=== PATIENT | female | born 1980 | race Caucasian/White ===

== ENCOUNTER 2017-09-05 07:42 | Inpatient (IN) | payer SELFPAY ==
[2017-09-05] MEDS ORDERED: Morphine 10 MG/ML VIAL ONE (08:20)
--- NOTE | 2017-09-05 09:28 | RAD ---
RIGHT FOREARM 2 VIEWS: Date: 09/05/17 INDICATION: Injury with pain. FINDINGS/IMPRESSION: There is evidence of soft tissue disruption dorsal mid forearm. No acute osseous abnormality identifi ed. No evidence of fracture. POS: [facility]
--- NOTE | 2017-09-05 09:29 | RAD ---
RIGHT HAND 3 VIEWS: Date: 09/05/17 HISTORY: Injury with lacerations and pain. FINDINGS: Carpals, metacarpals, and phalanges appear unremarkable and intact. IMPRESSION: No fracture or acute osseous abnormality identified. POS: [facility]
[2017-09-05] MEDS ORDERED: Lidocaine 1% w/Epinephrine 1:100K 20 ML VIAL ONE (09:43)
[2017-09-05] MEDS ORDERED: Lidocaine 1% PF 5 ML VIAL ONE (10:28)
[2017-09-05] MEDS ORDERED: Ondansetron HCl/PF 4 MG/2 ML Vial ONE (10:28)
[2017-09-05] MEDS ORDERED: Dexamethasone 20 MG/5 ML VIAL ONE (10:28)
[2017-09-05] MEDS ORDERED: Succinylcholine Chloride 20 MG/ML 10 ml SYRINGE FS ONE (10:28)
[2017-09-05] MEDS ORDERED: PROPOFOL 200 MG/20 ML VIAL ONE (10:28)
[2017-09-05] MEDS ORDERED: CEFAZOLIN/Water 2 GM/20 ML SYRINGE SLOW IVP SCH (10:45)
[2017-09-05 12:45] LABS: BHCG - Serum Negative (NEGATIVE); Pregs Control Background? CLEAR/WHITE (CLR/WHITE); Pregs Control Bar Appear? YES (CONTROL BAR)
[2017-09-05] MEDS ORDERED: Sodium Chloride 0.9% 30 ML ONE (13:20)
[2017-09-05] MEDS ORDERED: Bacitracin Zinc Ointment 30 gm TUBE ONE ×2 (13:20→13:21)
[2017-09-05] MEDS ORDERED: Bupivacaine PF 0.5% 30 ML VIAL ONE (13:20)
[2017-09-05] MEDS ORDERED: Midazolam HCl 2 mg/2 ml Vial ONE (13:28)
[2017-09-05] MEDS ORDERED: Fentanyl 100 MCG/2 ML VIAL ONE (13:28)
--- NOTE | 2017-09-05 17:00 | RAD ---
RIGHT LITTLE FINGER INTRAOPERATIVE FLUOROSCOPY TWO VIEWS: 09/05/17 HISTORY: Right finger injury. FINDINGS/IMPRESSION: Intraoperative fluoroscopy is provided for internal fixation as performed by Dr. Kaur. Two spot f luoroscopic images show wire transfixing the distal phalanx and distal interphalangeal joint. POS: [facility]
[2017-09-05] MEDS ORDERED: Acetaminophen 325 MG TAB PO PRN (17:09)
[2017-09-05] MEDS ORDERED: Milk Of Magnesia 30 ML UDCUP PO PRN (17:09)
[2017-09-05] MEDS ORDERED: Bisacodyl 10 MG SUPP PR PRN (17:09)
[2017-09-05] MEDS ORDERED: traMADol HCl 50 MG TAB PO PRN (17:09)
[2017-09-05] MEDS ORDERED: Promethazine HCl 25 MG/ML VIAL IM PRN (17:09)
[2017-09-05] MEDS ORDERED: TETANUS AND DIPHTHERIA TOX/PF 0.5 ML DISP.SYRIN IM SCH (17:15)
[2017-09-05] MEDS ORDERED: Communication Order-Pharmacy FS SCH (17:15)
[2017-09-05] MEDS ORDERED: Ketorolac Tromethamine 30 MG/ML VIAL ONE (17:16)
[2017-09-05] MEDS ORDERED: Ketorolac Tromethamine 30 MG/ML VIAL IVP PRN (17:18)
[2017-09-05] MEDS ORDERED: Vancomycin HCl 1 GM in Premix Bag 1 BAG IVPB SCH (20:00)
[2017-09-05] MEDS: Ketorolac Tromethamine 30 MG/ML VIAL IVP SCH (20:33)
[2017-09-05] MEDS: Aspirin 81 mg Enteric Coated Tablet PO SCH (22:02)
[2017-09-05] MEDS: HYDROcodone/Acetaminophen 5/325 mg Tablet PO PRN (22:02)
[2017-09-05 23:32] VITALS: BMI 27.3
[2017-09-06] MEDS: Ketorolac Tromethamine 30 MG/ML VIAL IVP SCH ×4 (00:23→11:45)
[2017-09-06] MEDS: HYDROcodone/Acetaminophen 5/325 mg Tablet PO PRN ×3 (02:29→16:17)
[2017-09-06 05:37] LABS: #Eosinphils 0.1 thou/uL (0.0-0.7); #Lymphocytes 1.2 thou/uL (1.20-3.40); #Monocytes 0.3 thou/uL (0.11-0.59); #Neutrophils 9.8 thou/uL (1.40-6.50); %Eosinophils 0.6 % (0.0-10.0); %Lymphocytes 10.8 % (21.0-51.0); %Monocytes 2.9 % (0.0-10.0); %Neutrophils 85.7 % (42.0-75.0); Hemoglobin 12.5 g/dL (12.0-16.0); Mean Corpuscular HGB CONC 31.9 g/dL (32.0-36.0); Mean Corpuscular Hemoglobin 28.9 pg (27.0-31.0); Mean Corpuscular Volume 90.4 fL (78.0-98.0); Mean Platelet Volume 7.3 fL (7.4-10.4); Platelet Count 261 thou/uL (130-400); RBC Distribution Width 12.4 % (11.5-14.5); Red Blood Cell (RBC) Count 4.35 mill/uL (4.20-5.40); White Blood Cell (WBC) Count 11.4 thou/uL (4.8-10.8)
[2017-09-06] MEDS ORDERED: Vancomycin HCl 1 GM in Premix Bag 1 BAG IVPB SCH (09:00)
[2017-09-06] MEDS: Aspirin 81 mg Enteric Coated Tablet PO SCH (09:05)
[2017-09-06 12:53] VITALS: BP 116/81; TEMP 97.5
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
== END 2017-09-06 17:17 | disposition home or self-care (01) | DRG 581 ==
LOC: EEVIPCON 07:42 → ERS 07:42 → SDC/OP 12:32 → SURG B 17:50
PROVIDERS: ADMIT Orthopaedic Surgery Hand Surgery; ATTEND Orthopaedic Surgery Hand Surgery
PROC: 0JDJ0ZZ Extraction of Right Hand Subcutaneous Tissue and Fascia, Open Approach (ICD-10-PCS; principal; 2017-09-05)
PROC: 0JDG0ZZ Extraction of Right Lower Arm Subcutaneous Tissue and Fascia, Open Approach (ICD-10-PCS; 2017-09-05)
PROC: 0KQC0ZZ Repair Right Hand Muscle, Open Approach (ICD-10-PCS; 2017-09-05)
PROC: 0LQ70ZZ Repair Right Hand Tendon, Open Approach (ICD-10-PCS; 2017-09-05)
PROC: 0LQ50ZZ Repair Right Lower Arm and Wrist Tendon, Open Approach (ICD-10-PCS; 2017-09-05)
PROC: 0RSW04Z Reposition Right Finger Phalangeal Joint with Internal Fixation Device, Open Approach (ICD-10-PCS; 2017-09-05)
PROC: 01Q40ZZ Repair Ulnar Nerve, Open Approach (ICD-10-PCS; 2017-09-05)
PROC: 0HQFXZZ Repair Right Hand Skin, External Approach (ICD-10-PCS; 2017-09-05)
PROC: 0HQDXZZ Repair Right Lower Arm Skin, External Approach (ICD-10-PCS; 2017-09-05)
PROC: 2W3JX1Z Immobilization of Right Finger using Splint (ICD-10-PCS; 2017-09-05)
PROC: 2W3GX1Z Immobilization of Right Thumb using Splint (ICD-10-PCS; 2017-09-05)
DX: S51.811A Laceration without foreign body of right forearm, initial encounter (principal); S61.511A Laceration without foreign body of right wrist, initial encounter; S61.411A Laceration without foreign body of right hand, initial encounter; S61.011A Laceration without foreign body of right thumb without damage to nail, initial encounter; S61.210A Laceration without foreign body of right index finger without damage to nail, initial encounter; S61.212A Laceration without foreign body of right middle finger without damage to nail, initial encounter; S61.214A Laceration without foreign body of right ring finger without damage to nail, initial encounter; S61.216A Laceration without foreign body of right little finger without damage to nail, initial encounter; S64.01XA Injury of ulnar nerve at wrist and hand level of right arm, initial encounter; W25.XXXA Contact with sharp glass, initial encounter; Y92.009 Unspecified place in unspecified non-institutional (private) residence as the place of occurrence of the external cause
CPT/HCPCS: 36415; 76000; 84703; 85025; 96372; 96374; A4216; J1100; J1885; J2001; J2250; J2270; J2405; J2704; J3010; J3370; J3490; S0020